=== PATIENT | female | born 1990 | race Caucasian/White ===

== ENCOUNTER 2016-11-30 14:31 | Outpatient (CLI) | payer BC ==
--- NOTE | 2016-11-30 15:22 | ULT ---
PELVIC ULTRASOUND WITH DOPPLER: (Transabdominal, transvaginal, Fonseca scale, color flow, and spectral Doppler) Date: 11/30/16 HISTORY: Concern for PCOS, trying to get . FINDINGS: The uterus measures 8.0 x 4.0 x 3.0 cm, without focal mass or endometrial fluid. The endometrium jeny sures 7.0 mm in thickness. The right ovary measures 3.4 x 3.5 x 1.8 cm. The left ovary measures 3.3 x 2.5 x 1.8 cm. No adnexal mass is seen. Flow is demonstrated to both ovaries. No cysts are identified. No free fluid is noted. IMPRESSION: Normal exam. POS: [facility]
== END 2016-11-30 14:32 | disposition home or self-care (01) ==
LOC: SCSULT 14:31
PROVIDERS: ATTEND Family Medicine
DX: N91.2 Amenorrhea, unspecified (principal)
CPT/HCPCS: 76856